=== PATIENT | male | born 1955 | race Two or more races ===

== ENCOUNTER 2024-07-31 16:39 | Emergency (ER) | payer BC ==
[2024-07-31 17:14] LABS: BASOPHILS ABSOLUTE AUTO 0.06 K/uL (0.02-0.10); BASOPHILS PERCENT AUTO 0.5 % (0.0-0.5); EOSINOPHILS ABSOLUTE AUTO 1.21 K/uL (0.04-0.40); EOSINOPHILS PERCENT AUTO 10.7 % (1.0-5.0); HEMATOCRIT 50.8 % (40.0-54.0); HEMOGLOBIN 17.9 g/dL (13.0-18.0); LYMPHOCYTES ABSOLUTE AUTO 1.93 K/uL (1.50-4.00); LYMPHOCYTES PERCENT AUTO 17.1 % (20.0-40.0); MEAN CORPUSCULAR HEMOGLOBIN 29.7 pg (27.0-32.0); MEAN CORPUSCULAR HGB CONC 35.2 g/dL (31.0-35.0); MEAN CORPUSCULAR VOLUME 84 fL (76-96); MEAN PLATELET VOLUME 9.2 fL (6.0-10.0); MONOCYTES ABSOLUTE AUTO 0.97 K/uL (0.20-0.80); MONOCYTES PERCENT AUTO 8.6 % (3.0-10.0); NEUTROPHILS ABSOLUTE AUTO 7.13 K/uL (2.00-7.50); NEUTROPHILS PERCENT AUTO 63.1 % (45.0-70.0); PLATELET COUNT,PLT 169 K/uL (150-400); RED BLOOD CELL COUNT 6.02 M/uL (4.50-6.50); RED CELL DISTRIBUTION WIDTH 13.4 % (11.0-16.0); WHITE BLOOD CELL COUNT,WBC 11.3 K/uL (4.0-11.0)
[2024-07-31 17:52] LABS: INFLUENZA A NAA NEGATIVE (NEGATIVE); INFLUENZA B NAA NEGATIVE (NEGATIVE); RESPIRATORY SYNCYTIAL VIR NAA NEGATIVE (NEGATIVE)
[2024-07-31 17:53] LABS: CORONAVIRUS COVID-19 NAA NEGATIVE (NEGATIVE)
[2024-07-31] MEDS: Levofloxacin 750 MG Tab PO SCH (18:17)
[2024-08-01] MEDS: Levofloxacin 750 MG Tab ONE (07:37)
== END 2024-07-31 18:20 | disposition home or self-care (01) ==
LOC: LB.ED 16:39
DX: J18.9 Pneumonia, unspecified organism (principal); Z90.49 Acquired absence of other specified parts of digestive tract; Z88.0 Allergy status to penicillin
CPT/HCPCS: 0241U; 36415; 71045; 85025; 99284; A9270

== ENCOUNTER 2024-08-19 10:46 | Emergency (ER) | payer BC ==
[2024-08-19 12:11] LABS: INFLUENZA A NAA NEGATIVE (NEGATIVE); INFLUENZA B NAA NEGATIVE (NEGATIVE); RESPIRATORY SYNCYTIAL VIR NAA NEGATIVE (NEGATIVE)
[2024-08-19 12:19] LABS: CORONAVIRUS COVID-19 NAA NEGATIVE (NEGATIVE)
[2024-08-19 12:32] LABS: HEMATOCRIT 49.6 % (40.0-54.0); HEMOGLOBIN 17.4 g/dL (13.0-18.0); MEAN CORPUSCULAR HEMOGLOBIN 30.1 pg (27.0-32.0); MEAN CORPUSCULAR HGB CONC 35.1 g/dL (31.0-35.0); RED BLOOD CELL COUNT 5.79 M/uL (4.50-6.50); RED CELL DISTRIBUTION WIDTH 13.9 % (11.0-16.0); WHITE BLOOD CELL COUNT,WBC 8.4 K/uL (4.0-11.0)
[2024-08-19 12:56] LABS: ANION GAP 11.7 mmol/L (5.0-15.0); BUN/CREATININE RATIO 16.8 (6-25); CALCIUM 8.7 mg/dL (8.5-10.1); CARBON DIOXIDE,CO2 27.3 mmol/L (21.0-32.0); CREATININE 1.01 mg/dL (0.70-1.30); EST CRCL DRUG DOSING (CG) 61.74 mL/min
[2024-08-19] MEDS: guaiFENesin/Dextromethorphan 100-10 MG/5 ML Soln 10 ML Cup PO ONE (13:26)
[2024-08-20] MEDS: Codeine/guaiFENesin 10-100 MG/5 ML Syrup 5 ML Cup PO ONE (09:53)
== END 2024-08-19 13:32 | disposition home or self-care (01) ==
LOC: LB.ED 10:46
DX: J21.9 Acute bronchiolitis, unspecified (principal); J45.909 Unspecified asthma, uncomplicated; Z87.891 Personal history of nicotine dependence; Z88.0 Allergy status to penicillin; Z79.51 Long term (current) use of inhaled steroids; Z79.899 Other long term (current) drug therapy
CPT/HCPCS: 0241U; 36415; 71046; 80048; 83880; 85027; 99283; A9270-GY